=== PATIENT | male | born 1995 | race Caucasian/White ===

== ENCOUNTER 2020-04-22 21:58 | Outpatient (REF) | payer OTHER, SELFPAY ==
[2020-04-25 10:30] LABS: HIV-1/2 Ag & Ab Screen Negative (Negative)
[2020-04-25 11:41] LABS: Syphilis Serology (RPR) Negative (Negative)
[2020-04-25 15:35] LABS: Chlamydia Result Negative (Negative); GC Result Negative (Negative)
== END 2020-04-22 22:18 ==
LOC: LBN 21:58
PROVIDERS: PCP Family Medicine; Visit Provider Nurse Practitioner
DX: Z11.3 Encounter for screening for infections with a predominantly sexual mode of transmission (principal); Z72.51 High risk heterosexual behavior
CPT/HCPCS: 87389; 87491; 87591; 86592

== ENCOUNTER 2021-04-15 04:57 | Emergency (ER) | payer OTHER, SELFPAY ==
[2021-04-15] VITALS (31 sets, daily range): BP systolic 97–144; BP diastolic 70–91; PULSE 70–94; RESP 7–25; TEMP 36.7; O2SAT 94–100
--- NOTE | 2021-04-15 05:15 | RT.EKG_ITS ---
APPROVED REPORT Exam: Resting ECG Reason for Exam: chest pain Patient Location: E HR:84 bpm ECG Measurements Heart Rate 84 AXIS AK 136 P 43 QRSd 85 QRS 37 QT 342 T 10 QTc 408 Conclusion Sinus rhythm...normal P axis, V-rate 60- 99 Ventricular premature complex...V complex w/ short R-R interval Lateral infarct, acute...ST >.10mV, V5 V6 I aVL Borderline ST elevation, anterior leads...ST >0.15mV in V1-V4 ST elevation V4-6
--- NOTE | 2021-04-15 05:59 | W.ED.GENAD ---
Discharge Plan Disposition Patient Disposition: [facility] Condition: Serious Discharge Details Clinical Impression: Elevated troponin, Non-ST elevation AR (NSTEMI) Primary Care Provider: Shannon Felder ED Provider: Aleksandr Anderson Home Meds and New Rx's Prescriptions: No Action colchicine 0.6 mg tablet 0.6 mg PO BID RF: 0 Discharge Data Discharge Date/Time-TO BE ENTERED AT DEPARTURE: 04/15/21 08:32 Medical Decision Making 605 --25-year-old male with remote history of pericarditis, here today with chest pain earlier this morning, pain now resolved. Recent fever with no known source over the past 5 days, also with recent mid to low back pain now resolved. Patient is saturating well in no respiratory distress. He is not tachycardic and normotensive. He is afebrile now. EKG was reviewed and interpreted by me: Please see report, patient does have ST elevation V4 to V6. Consider ACS although patient has no risk factors. Consider myocarditis. I will check troponin. Chest x-ray interpreted by me: No pneumothorax. No cardiomegaly. No infiltrate. Given recent fever over the past week with no known source, and tick exposure, consider tickborne disease. I will send tick panel. 640 --notified by lab troponin is elevated. Labs reviewed and troponin is 3.57. I called [facility] transfer center to request transfer and they are at capacity and unable to accept patient in transfer. I called [facility] transfer center to request transfer and awaiting callback. I will initiate heparin bolus and infusion and full dose aspirin. 652 --I spoke with Dr. Vizcaino, and discussed ED presentation and course, she agrees with heparin and aspirin and will accept the patient in transfer. She does not recommend additional therapeutics at this time. HPI General Mode of arrival: ambulatory. Date/Time Provider Initiated Documentation: 04/15/21 05:32. Limitations to Documentation: no limitations. Information obtained by: patient. HPI Narrative: 25-year-old male with remote history of pericarditis presents with chief complaint of chest pain. Patient notes he woke up this morning around 330 with chest discomfort. Discomfort described as a dull ache located in the center of his chest. Discomfort was moderate and persisted about 1 hour and resolved shortly before arrival here in the emergency department. He had no associated shortness of breath, nausea or diaphoresis. He does note that over the past 4 to 5 days he has had fever and also mid to low back pain that felt like muscle ache. He notes that he saw his PCP this week and had negative Covid testing and negative urinalysis and source of fever was determined. He states he thought his back pain was a result of sawing some branches overhead the day before onset. Patient does note that over the past 1 to 2 months he has removed some ticks that were biting him. Related Data Home Medications Medication Instructions Recorded Confirmed colchicine 0.6 mg tablet 0.6 mg PO BID 04/19/21 04/19/21 Allergies Allergy/AdvReac Type Severity Reaction Status Date / Time No Known Allergies Allergy Verified 04/19/21 10:05 General Stated Complaint: Chest Pain NADJA: 3 Review of Systems All systems reviewed & are unremarkable except as noted in HPI and below Constitutional Constitutional: Reports as per HPI, Reports fever(s) and Denies headache(s) ENT Ears, Nose, Mouth, and Throat: Denies headache(s) Cardiovascular Cardiovascular: Reports dyspnea Respiratory Respiratory: Reports cough and Reports dyspnea Gastrointestinal Gastrointestinal: Denies nausea and Denies vomiting Musculoskeletal Musculoskeletal: Reports as per HPI Integumentary/Breasts Skin/Breast: Denies rash Neurologic Neurologic: Denies headache(s) [facility] Medical History (Updated 04/19/21 @ 11:48 by Gentry Pardo NP) Pericarditis Social History Smoking/Tobacco Use Status: Never Smoking risk assessment performed?: Yes Alcohol Intake: current Alcohol Intake frequency: a few times a month Drug use: Socially Substance use type: marijuana Do you feel safe at home: Yes Do you feel safe in your relationship?: Yes Exam Const General: cooperative and no acute distress HENMT Mouth: moist mucous membranes Eyes Conjunctivae: normal conjunctivae Sclera: normal sclerae Neck Neck: trachea midline and supple Resp Auscultation: clear to auscultation bilaterally and no rales Cardio Rate: regular rate and not tachycardic Rhythm: regular rhythm GI Palpation: soft, not firm, no guarding, no masses, not rigid and nontender Skin General skin exam: no rashes or lesions noted Neuro General: patient alert, patient awake, patient oriented x3 and tone normal Extrem General: no calf tenderness and no edema Psych Appearance: grossly normal Mental Status: mental status grossly normal Speech and Movement: speech and movement normal Course Vital Signs Vital signs: Vital Signs Temperature 36.7 C 04/15/21 05:17 Pulse 87 04/15/21 05:17 Respiratory Rate 18 04/15/21 05:17 Blood Pressure 111/91 H 04/15/21 05:17 Pulse Oximetry 97 04/15/21 05:17 Temperature 36.7 C 04/15/21 05:17 Temperature Source Skin 04/15/21 05:17 Pulse 87 04/15/21 05:17 Respiratory Rate 16 04/15/21 05:45 Respiratory Effort 04/15/21 05:45 Blood Pressure 111/91 H 04/15/21 05:17 Pulse Oximetry 97 04/15/21 05:17 Pain Level 5 04/15/21 05:17 Critical Care Time Critical Care Time Critical Care Time: Yes Total Critical Care Time: 45 Attestation: I spent greater than 45 minutes addressing this patient's immediate life threats. Please see MDM section of note. This time was spent engaged in work directly related to the patient's care, exclusive of separate procedures, and failure to initiate these interventions would have likely resulted in clinically significant or life threatening deterioration in the patient's condition.
--- NOTE | 2021-04-15 06:10 | DI.RAD_ITS ---
Exam(s) XR CHEST 2V PA LATERAL EXAM: XR CHEST 2V PA LATERAL CLINICAL HISTORY: chest pain. TECHNIQUE: 2D digital imaging was performed. COMPARISON: CR CHEST 2 VIEWS PA,LAT from 08/18/2012 FINDINGS: Heart size is normal. The mediastinum is not widened. Lungs are clear. No infiltrates nor pleural effusions. IMPRESSION: No acute pulmonary findings. DATA REPOSITORY: RADIATION DOSE DELIVERED:
[2021-04-15 06:13] LABS: Abs Immature Grans 0.03 10^3/uL (0.0-0.06); Absolute Basophil Count 0.01 10^3/uL (0.0-0.2); Absolute Eosinophil Count 0.02 10^3/uL (0.0-0.7); Absolute Lymphocyte Count 1.55 10^3/uL (1.2-3.4); Absolute Monocyte Count 1.42 10^3/uL (0.1-0.8); Absolute Neutrophil Count 5.08 10^3/uL (1.2-6.7); Basophils % 0.1; Eosinophils % 0.2; HCT 46.9 % (40.0-50.0); HGB 15.9 g/dL (13.5-17.5); Immature Grans % 0.4; Lymphocytes % 19.1; MCH 28.5 pg (27.0-33.0); MCHC 33.9 % (32.0-36.0); MCV 84.2 fL (80-95); MPV 10.1 fL (8.0-11.0); Monocytes % 17.5; Neutrophils % 62.7; Nucleated RBC 0 %; Platelet Count 162 10^3/uL (130-400); RBC 5.57 10^6/uL (4.36-5.78); RDW-SD 36.6 fL; WBC 8.11 10^3/uL (4.4-10.8)
[2021-04-15 06:30] LABS: ALT 128 U/L (16-63); AST 67 U/L (15-37); Albumin 3.5 g/dL (3.4-5.0); Alkaline Phosphatase 122 U/L (46-116); Anion Gap 10.6 mmol/L (3-11); BUN 12 mg/dL (7-18); Bilirubin, Total 0.3 mg/dL (0.2-1.0); CO2 26.4 mmol/L (21.0-32.0); Chloride 100 mmol/L (98-107); Glucose 105 mg/dL (74-106); Potassium 4.7 mmol/L (3.5-5.1); Sodium 137 mmol/L (136-145); Total Protein 8.1 g/dL (6.4-8.2)
[2021-04-15 06:35] LABS: Troponin I 3.57 ng/mL (<0.06)
[2021-04-15] MEDS: Aspirin 325 MG TAB PO (06:53)
[2021-04-15 06:58] LABS: D-Dimer 2644 ng/mlFEU (<500)
[2021-04-15 08:13] LABS: Troponin I 4.09 ng/mL (<0.06)
--- NOTE | 2021-04-15 08:34 | DI.VRAD_ITS ---
PROCEDURE INFORMATION: Exam: XR Chest Exam date and time: 04/15/2021 5:38 AM Age: 25 years old Clinical indication: Other: Chest pain TECHNIQUE: Imaging protocol: XR of the chest. Views: 2 views. COMPARISON: No relevant prior studies available. FINDINGS: Lungs: Unremarkable. No consolidation. Pleural spaces: Unremarkable. No pleural effusion. No pneumothorax. Heart/Mediastinum: Unremarkable. No cardiomegaly. Bones/joints: Unremarkable. IMPRESSION: No acute findings. Dictated and Authenticated by: Vikas Day MD. Ordering:CARLY Brandon MD
[2021-04-17 15:11] LABS: Lyme Ab w Rflx to Lyme Confirm Positive (Negative)
[2021-04-18 18:40] LABS: Anaplasma phagocytophilum Negative (Negative); B. miyamotoi PCR Negative (Negative); Babesia divergens/MO-1 Negative (Negative); Babesia duncani Negative (Negative); Babesia microti Negative (Negative); Ehrlichia chaffeensis Negative (Negative); Ehrlichia ewingii/canis Negative (Negative); Ehrlichia muris eauclairensis Negative (Negative)
[2021-05-25 10:44] LABS: Lyme IgG Ab Negative (Negative)
[2021-05-25 10:45] LABS: Lyme IgM Ab Positive (Negative)
== END 2021-04-15 08:32 ==
PROVIDERS: Emergency Provider Student in an Organized Health Care Education/Training Program; PCP Family Medicine
DX: I21.4 Non-ST elevation (NSTEMI) myocardial infarction (principal); R79.89 Other specified abnormal findings of blood chemistry
CPT/HCPCS: 36415; 80053; 86617; 87798; 93005; 96365; 96366; 96376; 99291; 71046; 84484; 85025; 85379; 86618; 93010

== ENCOUNTER 2021-07-07 09:33 | Outpatient (CLI) | payer BC, SELFPAY ==
--- NOTE | 2021-07-07 09:30 | RT.EKG_ITS ---
APPROVED REPORT Exam: Resting ECG Reason for Exam: chest pain Patient Location: O HR:65 bpm ECG Measurements Heart Rate 65 AXIS W[place] 136 P 14 QRSd 90 QRS 48 QT 369 T 10 QTc 384 Conclusion Sinus rhythm...normal P axis, V-rate 50- 99 ST elev, probable normal early repol pattern...ST elevation, age<55 Normal Electrocardiogram
== END 2021-07-07 09:34 | disposition home or self-care (01) ==
LOC: DI.CARD 09:34
PROVIDERS: PCP Family Medicine; Visit Provider Internal Medicine Cardiovascular Disease
DX: R07.9 Chest pain, unspecified (principal)
CPT/HCPCS: 93010

== ENCOUNTER 2021-12-11 01:54 | Outpatient (CLI) | payer BC, SELFPAY ==
[2021-12-11 11:03] LABS: HCT 46.5 % (40.0-50.0); HGB 15.4 g/dL (13.5-17.5); MCH 28.7 pg (27.0-33.0); MCHC 33.1 % (32.0-36.0); MCV 86.6 fL (80-95); MPV 9.7 fL (8.0-11.0); Platelet Count 234 10^3/uL (130-400); RBC 5.37 10^6/uL (4.36-5.78); RDW 12.1 % (11.8-14.1); RDW-SD 38.7 fL; WBC 6.61 10^3/uL (4.4-10.8)
[2021-12-11 12:29] LABS: Hemoglobin A1C 5.6 % (<5.7)
[2021-12-11 12:36] LABS: TSH 1.07 uIU/mL (0.36-3.74)
== END 2021-12-11 01:55 | disposition home or self-care (01) ==
LOC: LBO 01:54
PROVIDERS: Nurse Practitioner Family; PCP Family Medicine; Visit Provider Family Medicine
DX: R53.83 Other fatigue (principal); Z13.1 Encounter for screening for diabetes mellitus
CPT/HCPCS: 36415; 85027; 83036; 84443

== ENCOUNTER 2021-12-14 21:28 | Emergency (ER) | payer BC, SELFPAY ==
--- NOTE | 2021-12-14 21:30 | RT.EKG_ITS ---
APPROVED REPORT Exam: Resting ECG Reason for Exam: palpitations Patient Location: E HR:80 bpm ECG Measurements Heart Rate 80 AXIS MO 148 P 54 QRSd 84 QRS 47 QT 346 T 10 QTc 399 Conclusion Sinus rhythm...normal P axis, V-rate 60- 99
[2021-12-14 21:31] VITALS: BP 145/88; PULSE 84; RESP 18; TEMP 36.9; O2SAT 96
[2021-12-14 21:36] VITALS: RESP 18
--- NOTE | 2021-12-14 21:45 | ED.GENADUL_ITS ---
Discharge Plan Disposition Patient Disposition: HOME Condition: Stable Discharge Details Clinical Impression: Palpitations, Anxiety Primary Care Provider: Seven Rojas ED Provider: Ney Benoit Home Meds and New Rx's Prescriptions: New lorazepam 1 mg tablet 1 mg PO DAILY PRN (Reason: anxiety) Qty: 5 0RF Discharge Instructions Instructions: Anxiety (ED) Additional Instructions: your lab work, ekg and vitals signs showed no concerning findings at this time follow up with your primary care provider within 1-2 weeks especially if you continue to have episodes of anxiety if you feel more ill, have difficulty breathing or chest pain return to the emergency department for reevaluation Medical Decision Making 26 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 Denies any history of anxiety though he does feel as though he has had increased stress due to him expecting a child in the near future. He had 3 bud lights tonight with friends and states this is not an excessive amount for him. He denies drug use. Denies chest pain, dyspnea, fevers, abdomen pain. He arrives caox4 with clear speech though does feel anxious. States he still feels his heart is racing despite his HR being 80 here. He has clear lungs, no murmurs, no leg swelling or calf tenderness. He is clinically sober and not intoxicated. I suspect this is anxiety but will obtain ecg and evaluate for electrolyte abnormalities. Will also treat his symptoms with ativan and reassess. Given lack of chest pain/pressure or dyspnea doubt acs, no back pain to suggest dissection. He is wells low and perc negative so doubt PE pt feels better after ativan, labs show no acute findings. Given lack of chest pain or dyspnea do not feel he requires additional troponin or ekg. He is stable for d/c, will follow up with his pcp and return precautions given. Small amount of prn ativan also prescribed Differential Diagnosis Differential Diagnosis: anxiety, electrolyte abnormality, palpitations Medical Records Medical records reviewed: Yes I reviewed the patient's medical records. Lab Data Lab results reviewed: Yes I reviewed the patient's lab results. ECG Data Attestation: I personally reviewed and interpreted this ECG (s) as follows: Prior ECG tracings: available for review Interpretation: sinus rhythm, rate of 80, no acute st t wave ischemic findings HPI General Mode of arrival: ambulatory . Date/Time Provider Initiated Documentation: 12/14/21 21:29 . Limitations to Documentation: no limitations . Information obtained by: patient . History of Present Illness 26 year old M presents to the emergency department with the chief complaint of feels heart is racing, Patient started experiencing this hour(s) (1) and it has been constant. improves with No relieving factors improve symptom(s), No exacerbating factors reported . Patient notes other (anxiety). Patient did receive the following treatments prior to arrival, none Related Data Home Medications Medication Instructions Recorded Confirmed lorazepam 1 mg tablet 1 mg PO DAILY PRN #5 tab 12/14/21 Previous Rx's Medication Instructions Recorded lorazepam 1 mg tablet 1 mg PO DAILY PRN #5 tab 12/14/21 Allergies Allergy/AdvReac Type Severity Reaction Status Date / Time No Known Allergies Allergy Verified 12/14/21 21:38 General Stated Complaint: Anxiety NADJA: 4 Review of Systems All systems reviewed & are unremarkable except as noted in HPI and below Constitutional Constitutional: Denies chills, Denies fever(s) and Denies weakness Eyes Eyes: Denies loss of vision Cardiovascular Cardiovascular: Denies chest pain and Denies dyspnea Respiratory Respiratory: Denies cough and Denies dyspnea Gastrointestinal Gastrointestinal: Denies abdominal pain and Denies vomiting Genitourinary Genitourinary: Denies dysuria Musculoskeletal Musculoskeletal: Denies joint swelling Integumentary/Breasts Skin/Breast: Denies rash Neurologic Neurologic: Denies loss of vision and Denies weakness Psychiatric Psychiatric: Denies depression Endocrine Endocrine: Denies cold intolerance and Denies heat intolerance PFSH All Active Problems (Updated 12/14/21 @ 22:33 by Ney Benoit MD) Palpitations (Acute) Anxiety (Chronic) Mass in neck (Acute) Fatigue (Acute) Myocarditis (Acute) 2020- associated with Lyme disease, elevated cardiac enzymes, followed by Cardiology, resolved as of Lyme disease (Acute) Migraine (Acute) Reactive lymphadenopathy (Acute) Elevated blood pressure reading in office without diagnosis of hypertension (Acute) Medical History Pericarditis Social History Smoking/Tobacco Use Status: Never Smoking risk assessment performed?: Yes Alcohol Intake: current Alcohol Intake frequency: a few times a month Drug use: Socially Substance use type: marijuana 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 [employer] Do you feel safe at home: Yes Do you feel safe in your relationship?: Yes Exam Const General: no acute distress and anxious Orientation: alert HENWY Head: normal to inspection Ears: external ears normal General nose exam: external nose normal Mouth: moist mucous membranes Eyes General: appearance normal, both eyes and all related structures Neck Neck: normal visual inspection Resp Effort & Inspection: normal respiratory effort and able to speak in complete s entences Cardio Rate: regular rate Skin General skin exam: no rashes or lesions noted Neuro General: patient alert and patient oriented x3 Extrem General: normal to inspection Psych Mental Status: mental status grossly normal Course Vital Signs Vital signs: Vital Signs Temperature 36.9 C 12/14/21 21:31 Pulse 84 12/14/21 21:31 Respiratory Rate 18 12/14/21 21:31 Blood Pressure 145/88 H 12/14/21 21:31 Pulse Oximetry 96 12/14/21 21:31 Temperature 36.9 C 12/14/21 21:31 Temperature Source Skin 12/14/21 21:31 Pulse 84 12/14/21 21:31 Respiratory Rate 18 12/14/21 21:36 Respiratory Effort 12/14/21 21:36 Respiratory Depth Normal 12/14/21 21:36 Respiratory Pattern Normal 12/14/21 21:36 Blood Pressure 145/88 H 12/14/21 21:31 Blood Pressure Position Sitting 12/14/21 21:31 Pulse Oximetry 96 12/14/21 21:31 Oxygen Delivery Method Room Air 12/14/21 21:31 Oxygen Flow Rate 0 12/14/21 21:31 Pain Level 0 12/14/21 21:31
[2021-12-14] MEDS: LORazepam 1 MG TAB PO (21:50)
[2021-12-14 22:03] LABS: Abs Immature Grans 0.02 10^3/uL (0.0-0.06); Absolute Basophil Count 0.03 10^3/uL (0.0-0.2); Absolute Eosinophil Count 0.18 10^3/uL (0.0-0.7); Absolute Lymphocyte Count 3.13 10^3/uL (1.2-3.4); Absolute Neutrophil Count 5.03 10^3/uL (1.2-6.7); Basophils % 0.3; Eosinophils % 1.9; HCT 44.7 % (40.0-50.0); HGB 14.9 g/dL (13.5-17.5); Immature Grans % 0.2; Lymphocytes % 33.7; MCH 28.7 pg (27.0-33.0); MCHC 33.3 % (32.0-36.0); MPV 9.8 fL (8.0-11.0); Monocytes % 9.7; Neutrophils % 54.2; Nucleated RBC 0 %; Platelet Count 239 10^3/uL (130-400); RDW 11.8 % (11.8-14.1); RDW-SD 37.3 fL; WBC 9.29 10^3/uL (4.4-10.8)
[2021-12-14 22:20] LABS: ALT 79 U/L (16-63); AST 31 U/L (15-37); Albumin 4.1 g/dL (3.4-5.0); Alkaline Phosphatase 87 U/L (46-116); Anion Gap 8.6 mmol/L (3-11); BUN 15 mg/dL (7-18); Bilirubin, Total 0.4 mg/dL (0.2-1.0); CO2 28.4 mmol/L (21.0-32.0); CREATININE 0.9 mg/dL (0.70-1.30); Calcium 8.7 mg/dL (8.5-10.1); Chloride 102 mmol/L (98-107); Glucose 101 mg/dL (74-106); Sodium 139 mmol/L (136-145); Total Protein 7.7 g/dL (6.4-8.2); Troponin I < 50 ng/L (<or=60)
== END 2021-12-14 22:37 | disposition home or self-care (01) ==
PROVIDERS: Emergency Provider Emergency Medicine; PCP Family Medicine
DX: R00.2 Palpitations (principal); F41.9 Anxiety disorder, unspecified
CPT/HCPCS: 36415; 80053; 93005; 99283; 84484; 85025; 93010

== ENCOUNTER 2022-10-27 16:01 | Emergency (ER) | payer BC, SELFPAY ==
[2022-10-27 16:04] VITALS: BP 153/97; PULSE 89; RESP 18; O2SAT 99
[2022-10-27 16:08] VITALS: RESP 18
--- NOTE | 2022-10-27 19:42 | ED.GENADUL_ITS ---
Discharge Plan Disposition Patient Disposition: Home Condition: Stable Discharge Details Clinical Impression: Dehydration Primary Care Provider: Gnetry Pardo ED Provider: Desirae Swenson Home Meds and New Rx's Prescriptions: No Action No Known Home Meds Discharge Instructions Instructions: Dehydration (ED) Additional Instructions: Follow up with primary care provider in 3-5 days. Return to ED sooner if any worsening or concerns. Increase oral fluids. Your blood sugar was within normal limits today at 109. Please take Tylenol or Ibuprofen with food every 4-6 hours as needed for pain and swelling. COVID and flu are negative. Referrals: Gentry aPrdo, PATIENT SCHEDULING COORDINATOR [Primary Care Provider] - 1 week Medical Decision Making 27-year-old male presents to the ER with a chief complaint of feeling shaky and off around noon today. He does endorse drinking heavily last night being somewhat hung over today. He reports that he had some increased anxiety. He denies any chest pain abdominal pain nausea vomiting or diarrhea. He has been urinating today. Rapid COVID and flu swab ordered and fingerstick glucose. BGL 109 Patient discharged with strict return instructions and follow-up care. This text was generated using [employer]hm[employer]ze dictation system, please disregard any oddities of phrase or misspellings. HPI General Mode of arrival: ambulatory . Date/Time Provider Initiated Documentation: 10/27/22 16:07 . Limitations to Documentation: no limitations . Information obtained by: patient, RN notes reviewed and old records reviewed . HPI Narrative: 27-year-old male presents to the ER with a chief complaint of feeling shaky and off around noon today. He does endorse drinking heavily last night being somewhat hung over today. He reports that he had some increased anxiety. He denies any chest pain abdominal pain nausea vomiting or diarrhea. He has been urinating today. Does have a history of myocarditis, Lyme disease, migraine and elevated blood pressure which she was seen for in his primary care office yesterday. Related Data Home Medications Medication Instructions Recorded Confirmed Unknown [No Known Home Meds] 10/10/22 10/27/22 Allergies Allergy/AdvReac Type Severity Reaction Status Date / Time No Known Allergies Allergy Verified 10/27/22 19:29 General Stated Complaint: GenMedical NADJA: 4 Review of Systems All systems reviewed & are unremarkable except as noted in HPI and below Constitutional Constitutional: Reports as per HPI, Denies fever(s), Denies headache(s) and Reports malaise ENT Ears, Nose, Mouth, and Throat: Denies headache(s) Cardiovascular Cardiovascular: Denies chest pain and Denies dyspnea Respiratory Respiratory: Reports change in phlegm color (Green), Reports cough and Denies dyspnea Gastrointestinal Gastrointestinal: Denies abdominal pain, Denies diarrhea and Denies vomiting Neurologic Neurologic: Denies headache(s) PFSH All Active Problems (Updated 10/27/22 @ 20:10 by Desirae Swenson NP) Dehydration (Acute) Snoring (Acute) Mass in neck (Acute) Myocarditis (Acute) 2020- associated with Lyme disease, elevated cardiac enzymes, followed by Cardiology, resolved as of Lyme disease (Acute) Migraine (Acute) Very rare Reactive lymphadenopathy (Acute) Elevated blood pressure reading in office without diagnosis of hypertension (Ac ione) Medical History Pericarditis Social History Smoking/Tobacco Use Status: Former Tobacco Use tobacco type: smokeless tobacco Smokeless tobacco user: chewing tobacco Second Hand Exposure: Yes Smoking risk assessment performed?: Yes Alcohol Intake: current Alcohol Intake frequency: a few times a week Alcohol type: beer Drug use: Occasionally Substance use type: marijuana Caregiver/Support person: No Household members: spouse and children Housing: house Communication Needs: None Do you need help understanding health information?: Never 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 [employer] Pets and animals: No Sexually active: Yes Do you think of yourself as: straight/heterosexual Current gender identity: male What is your relationship status?: living with partner How often do you talk on the phone with friends or family?: three or more times per week How often do you get together with friends or relatives?: once per week How often do you attend restorationist or yarsani services?: decline to answer Do you belong to any clubs or organized social groups?: no Panel score (0-1 are the most socially isolated patients): 2 What type of physical activity do you participate in: none Kelly/Restorationist: No preference Special kelly needs: No Seatbelt use: always Helmet use: Yes Helmet use: always Drive intox or ride w/intox refrigerated national truck driver: No Do you feel safe at home: Yes Do you feel safe in your relationship?: Yes Exam Narrative Exam Narrative: Constitutional: Alert and oriented x3. Appears stated age. Normal body habitus. Head: Normocephalic, no trauma. Eyes: Pupils PERRL, Red reflex noted, EOM's intact. Eyelids symmetrical without lesions, discharge, or swelling. ENT: Bilateral TM's WNL, External ear normal to inspection, no mastoid TTP, swelling, or erythema, Nasal turbinates WNL, no nasal discharge. Normal dentition, Posterior pharynx WNL, no exudate. Chest: RRR, Normal S1, S2, distal pulses intact. Resp: Lungs clear to auscultation bilaterally, no wheezes, rales, or rhonchi. Abdomen: Soft, non-distended, Normoactive bowel sounds all 4 quads. Musculoskeletal: Normal gait, 5/5 strength to all four extremities. Skin: No suspicious rashes or lesions. Capillary refill less than 2 sec. Neurologic: Cranial nerves II-XII intact. Alert and oriented x 3. Motor: No deficits noted. Sensory: Intact bilaterally all 4 extremities. Reflexes: DTR's intact bilaterally.. Hematologic/Lymphatic: No ecchymosis, no lymphadenopathy. Course Vital Signs Vital signs: Vital Signs Pulse 89 10/27/22 16:04 Respiratory Rate 18 10/27/22 16:04 Blood Pressure 153/97 H 10/27/22 16:04 Pulse Oximetry 99 10/27/22 16:04 Pulse 89 10/27/22 16:04 Respiratory Rate 18 10/27/22 16:08 Respiratory Effort 10/27/22 16:08 Respiratory Depth Normal 10/27/22 16:08 Respiratory Pattern Normal 10/27/22 16:08 Blood Pressure 153/97 H 10/27/22 16:04 Blood Pressure Position Sitting 10/27/22 16:04 Pulse Oximetry 99 10/27/22 16:04 Oxygen Delivery Method Room Air 10/27/22 16:04 Oxygen Flow Rate 0 10/27/22 16:04 Pain Level 0 10/27/22 16:04 PAWSS Have you Been Recently Intoxicated or Drunk Within the Last 30 days?: Yes Have you Ever Experienced Previous Episodes of Alcohol Withdrawal?: No Have you ever Experienced Withdrawal Seizures?: No Have you ever Experienced Delirium Tremens(DT)s?: No Have you ever undergone Alcohol Rehabilitation Treatment (i.e, inpt ot outpatient treatment programs)?: No Have you ever Experienced Blackouts?: No Have you ever Combined Alcohol with other Downers within the last 90 days?: Yes Have you ever Combined Alcohol with any other Substance of Abuse during the last 90 days?: No Positive Blood Alcohol level on Presentation? [PCS.BAL]: No Evidence of Increased Autonomic Activity (i.e. HR>120, tremor, sweating, agitation, nausea)?: No Result: 1
[2022-10-27 20:49] VITALS: BP 147/63; PULSE 73; RESP 18; TEMP 36.7; O2SAT 97
== END 2022-10-27 20:51 | disposition home or self-care (01) ==
PROVIDERS: Emergency Provider Registered Nurse Emergency; PCP Nurse Practitioner Family
DX: E86.0 Dehydration (principal); F41.9 Anxiety disorder, unspecified; F10.10 Alcohol abuse, uncomplicated
CPT/HCPCS: 36416; 82962; 99282; 99283

== ENCOUNTER 2022-12-04 03:37 | Outpatient (CLI) | payer BC, SELFPAY ==
[2022-12-04 12:38] LABS: Hemoglobin A1C 5.7 % (<5.7)
[2022-12-04 12:43] LABS: Calculated LDL 91 mg/dL (<100); Cholesterol 138 mg/dL (<200); HDL Cholesterol 36 mg/dL (40-60); Triglyceride 56 mg/dL (<150)
== END 2022-12-04 03:38 | disposition home or self-care (01) ==
PROVIDERS: PCP Nurse Practitioner Family; Visit Provider Nurse Practitioner Family
DX: Z13.220 Encounter for screening for lipoid disorders (principal); Z13.1 Encounter for screening for diabetes mellitus
CPT/HCPCS: 36415; 80061; 83036